=== PATIENT | male | born 1955 | race Caucasian/White ===

== ENCOUNTER 2024-07-29 12:55 | Emergency (ER) | payer OTHER, SELFPAY ==
[2024-07-29 13:08] VITALS: BP 131/71; PULSE 67; RESP 17; TEMP 36.4; O2SAT 97; BMI 29.1
--- NOTE | 2024-07-29 13:15 | ECG_ITS ---
[facility]24[facility]29 Pat Name: Moses Weaver Department: Room: Gender: Male Construction Contractor: : [id number] Requested By: Sanchez Paez Order Number: [id number] Yohana MD: Tavon Anne M.D. Measurements Intervals [place] Rate: 57 P: 59 SC: 160 QRS: 55 QRSD: 101 T: 42 QT: 383 QTc: 374 Interpretive Statements SINUS BRADYCARDIA No previous ECG available for comparison Electronically Signed On 07-30-2024 00:03:40 WINDING OPERATOR by Tavon Anne M.D. [id number]
--- NOTE | 2024-07-29 13:29 | XRR_ITS ---
PROCEDURE INFORMATION: Exam: XR Chest Exam date and time: 07/29/2024 1:54 PM Age: 69 years old Clinical indication: Other: AMS TECHNIQUE: Imaging protocol: Radiologic exam of the chest. Views: 1 view. COMPARISON: No relevant prior studies available. FINDINGS: Lungs: Unremarkable. No consolidation. Pleural spaces: Unremarkable. No pleural effusion. No pneumothorax. Heart/Mediastinum: Unremarkable. No cardiomegaly. Bones/joints: Unremarkable. XR/XR chest 1V portable [id number] IMPRESSION: No acute findings.
[2024-07-29 13:51] LABS: Basophils # 0.1 10^3/uL (0.0-0.1); Basophils % 0.5 %; Eosinophils # 0.3 10^3/uL (0.0-0.8); Eosinophils % 2.8 %; Hematocrit 41.3 % (37-53); Lymphocytes # 3.9 10^3/uL (0.8-4.8); Lymphocytes % 39.7 %; Mean Corpuscular HGB Conc 33.4 g/dL (30-55); Mean Corpuscular Hemoglobin 32.7 pg (27-33); Mean Corpuscular Volume 97.9 fl (82-101); Mean Platelet Volume 11.9 fL (7.4-10.4); Monocytes # 0.7 10^3/uL (0.2-0.9); Monocytes % 7.1 %; Neutrophils # 4.87 10^3/uL (1.8-7.7); Neutrophils % 49.8 %; Nucleated Red Blood Cells % 0 %; Platelet Count 255 10^3/cmm (157-399); Red Blood Count 4.22 10^6/uL (3.85-5.65); Red Cell Distribution Width 11.9 % (12.1-15.1); White Blood Count 9.77 10^3/uL (3.29-11.43)
[2024-07-29 14:07] VITALS: BP 119/75; PULSE 52; RESP 18; O2SAT 96
--- NOTE | 2024-07-29 14:09 | ED_ITS ---
HPI - Altered Mental Status 2 General: Chief Complaint: Altered Mental Status Stated Complaint: Confussion Time Seen by Provider: 07/29/24 13:02 Source: patient and family Mode of arrival: ambulatory Limitations: altered mental status History of Present Illness: 69-year-old male who has a history of de mentia patient's caregiver is here with him she states that he is with another individual today who thought he was more confused and normal she states that he has been at his normal self since she has been around him patient here does know his name he is confused to time but caregiver states this is his baseline no fevers has had some mild dyspnea she states that he is complained of. Related Data Home Medications Medication Instructions Recorded Confirmed lactulose 10 gram/15 mL oral 30 ml PO DAILY 07/29/24 07/29/24 solution multivitamin 1 tab PO QAM 07/29/24 07/29/24 Allergies Allergy/AdvReac Type Severity Reaction Status Date / Time No Known Allergies Allergy Verified 07/29/24 13:13 Review of Systems 2 Const: Denies: fever(s), chills, body aches or change in appetite ENMT: Denies: throat pain or dental pain Card: Denies: chest pain Resp: Denies: dyspnea GI: Denies: abdominal pain, nausea, vomiting or diarrhea Musc: Denies: neck pain or back pain Skin/Breast: Denies: rash Neuro: Denies: headache(s) Physical Exam 2 Const: COMMON NORMALS: no acute distress, patient oriented x3 and healthy appearing HENMT: COMMON NORMALS: normocephalic and atraumatic HEAD & SCALP: n ormocephalic and atraumatic Neck/C-Spine: COMMON NORMALS: full ROM and supple Chest: COMMONS NORMALS: normal inspection of the chest Resp: COMMON NORMALS: normal respiratory effort, No retractions, No use of accessory muscles and clear to auscultation bilaterally AUSCULTATION: clear to auscultation bilaterally Cardio: COMMON NORMALS: regular rate, regular rhythm and No murmurs present (Cardio) RATE: regular rate RHYTHM: regular rhythm Extremity: COMMON NORMALS: normal to inspection and full ROM Neuro: COMMON NORMALS: patient oriented x3, moves all extremities and no focal motor deficits Psych: COMMON NORMALS: mental status grossly normal, Normal thought process present and cooperative THOUGHT PROCESS: Normal thought process present Skin: COMMON NORMALS: no rashes or lesions noted and no wounds GENERAL SKIN EXAM: no rashes or lesions noted Course 2 Vital Signs: Vital signs: Vital Signs Temperature 97.5 F L 07/29/24 13:08 Pulse Rate 52 L 07/29/24 14:07 Respiratory Rate 18 07/29/24 14:07 Blood Pressure 119/75 07/29/24 14:07 Pulse Oximetry 96 07/29/24 14:07 Oxygen Delivery Me thod Room Air 07/29/24 14:07 MDM - Altered Mental Status Medical Decision Making Patient presents here with confusion he is at his baseline per family he is well-appearing here blood work is normal he stable for discharge Medical Records I reviewed the patient's medical records. Lab Data I reviewed the patient's lab results. 07/29/24 13:44 07/29/24 13:44 Radiology Impressions Chest X-Ray 07/29/24 13:29 IMPRESSION: No acute findings. Laboratory Results WBC 9.77 10^3/uL (3.29-11.43) 07/29/24 13:44 RBC 4.22 10^6/uL (3.85-5.65) 07/29/24 13:44 Hgb 13.80 g/dL (11.27-16.99) 07/29/24 13:44 Hct 41.3 % (37-53) 07/29/24 13:44 MCV 97.9 fl (82-101) 07/29/24 13:44 MCH 32.7 pg (27-33) 07/29/24 13:44 MCHC 33.4 g/dL (30-55) 07/29/24 13:44 RDW 11.9 % (12.1-15.1) L 07/29/24 13:44 Plt Count 255 10^3/cmm (157-399) 07/29/24 13:44 MPV 11.9 fL (7.4-10.4) H 07/29/24 13:44 Neut % (Auto) 49.8 % 07/29/24 13:44 Lymph % (Auto) 39.7 % 07/29/24 13:44 [place] % (Auto) 7.1 % 07/29/24 13:44 Eos % (Auto) 2.8 % 07/29/24 13:44 Baso % (Auto) 0.5 % 07/29/24 13:44 Neut # (Auto) 4.87 10^3/uL (1.8-7.7) 07/29/24 13:44 Lymph # (Auto) 3.9 10^3/uL (0.8-4.8) 07/29/24 13:44 [place] # (Auto) 0.7 10^3/uL (0.2-0.9) 07/29/24 13:44 Eos # (Auto) 0.3 10^3/uL (0.0-0.8) 07/29/24 13:44 Baso # (Auto) 0.1 10^3/uL (0.0-0.1) 07/29/24 13:44 Nucleated RBC % (auto) 0 % 07/29/24 13:44 Nucleated RBCs # 0.0 /100WBC 07/29/24 13:44 Sodium 133 mmol/L (136-145) L 07/29/24 13:44 Potassium 3.9 mmol/L (3.5-5.1) 07/29/24 13:44 Chloride 100 mmol/L (98-107) 07/29/24 13:44 Carbon Dioxide 23 mmol/L (22-29) 07/29/24 13:44 Anion Gap 13.9 (5-19) 07/29/24 13:44 BUN 11 mg/dL (8-23) 07/29/24 13:44 Creatinine 0.8 mg/dL (0.7-1.2) 07/29/24 13:44 GFR Calculation Not Reportable 07/29/24 13:44 Glucose 120 mg/dL (65-115) H 07/29/24 13:44 Calculated Osmolality 277 mOsm/kg (285-295) L 07/29/24 13:44 Calcium 9.0 mg/dL (8.5-10.5) 07/29/24 13:44 Magnesium 2.2 mg/dL (1.7-2.3) 07/29/24 13:44 Total Bilirubin 0.3 mg/dL (0.15-1.2) 07/29/24 13:44 AST 15 U/L (0-40) 07/29/24 13:44 ALT 18 U/L (0-41) 07/29/24 13:44 Alkaline Phosphatase 82 U/L (40-130) 07/29/24 13:44 Ammonia 38 umol/L (16-60) 07/29/24 13:44 Total Protein 6.6 g/dL (6.6-8.7) 07/29/24 13:44 Albumin 3.9 g/dL (3.5-5.2) 07/29/24 13:44 Globulin 2.7 g/dL (1.3-4.6) 07/29/24 13:44 TSH 1.48 uIU/mL (0.27-4.20) 07/29/24 13:44 All radiology interpretation(s) finalized by discharge Discharge Plan Discharge Patient Disposition: Home Clinical Impression: Dementia Condition: Stable Prescriptions: No Action lactulose 10 gram/15 mL solution 30 ml PO DAILY multivitamin Tablet 1 tab PO QAM Discharge Orders: Discharge ED (Routine); Ordered 07/29/24 Ordered By: Kyle Mejia Discharge Diet: Advance as tolerated Discharge Activity: Resume usual activity Patient Instructions: Altered Mental Status (ED) Coding Level of Care Code ED Truck [employer] for Lenin Montgomery
[2024-07-29 14:17] LABS: Ammonia 38 umol/L (16-60)
[2024-07-29 14:18] LABS: Alanine Aminotransferase 18 U/L (0-41); Albumin Level 3.9 g/dL (3.5-5.2); Alkaline Phosphatase 82 U/L (40-130); Anion Gap 13.9 (5-19); Aspartate Amino Transferase 15 U/L (0-40); Blood Urea Nitrogen 11 mg/dL (8-23); Carbon Dioxide 23 mmol/L (22-29); Chloride 100 mmol/L (98-107); Creatinine Clr Calc Pharmacy 82.2389; Globulin 2.7 g/dL (1.3-4.6); Glucose 120 mg/dL (65-115); Magnesium 2.2 mg/dL (1.7-2.3); Osmolality Calculated 277 mOsm/kg (285-295); Potassium 3.9 mmol/L (3.5-5.1); Sodium 133 mmol/L (136-145); Thyroid Stimulating Hormone 1.48 uIU/mL (0.27-4.20); Total Bilirubin 0.3 mg/dL (0.15-1.2); Total Protein 6.6 g/dL (6.6-8.7)
[2024-07-29 15:02] VITALS: BP 142/79; PULSE 48; O2SAT 95
== END 2024-07-29 15:22 | disposition home or self-care (01) ==
PROVIDERS: Emergency Provider Emergency Medicine
DX: F03.90 Unspecified dementia, unspecified severity, without behavioral disturbance, psychotic disturbance, mood disturbance, and anxiety (principal)
CPT/HCPCS: 36415; 71045; 80053; 82140; 83735; 84443; 85025; 93005; 99285